=== PATIENT | female | born 1990 | race African-American/Black ===

== ENCOUNTER 2018-08-05 21:25 | Emergency (ER) | payer OTHER ==
[~2018-08-05] VITALS: Ht 167.6 cm; Wt 95.3 kg
[2018-08-05 22:32] LABS: URINE BLOOD NEGATIVE (Negative); URINE CLARITY CLEAR; URINE COLOR YELLOW; URINE GLUCOSE-RANDOM NEGATIVE (Negative); URINE LEUKOCYTES-REFLEX NEGATIVE (Negative); URINE NITRITE-REFLEX NEGATIVE (Negative); URINE PROTEIN 1+ (Negative); URINE SPECIFIC GRAVITY >= 1.030 (1.005-1.030)
[2018-08-05 22:34] LABS: ICTOTEST (BILI CONFIRMATORY) Negative (Negative); URINE BILIRUBIN 1+ (Negative); URINE KETONES 3+ (Negative)
[2018-08-05 22:43] LABS: ABSOLUTE LYMPHOCYTES 0.8 thou/uL (0.8-5.3); ABSOLUTE MONOCYTES 0.5 thou/uL (0.0-1.2); ABSOLUTE NEUTROPHILS 3.2 thou/uL (1.6-8.1); BASOPHILS 1.1 %; EOSINOPHILS 0.6 %; HEMATOCRIT 35.4 % (37.0-47.0); LYMPHOCYTES 17.2 %; MCH 21.4 pg (26.0-34.0); MCHC 31.2 g/dL (28.0-37.0); MCV 68.5 fL (80.0-100.0); MONOCYTES 10.2 %; MPV 9.2 fl. (7.2-11.1); NUCLEATED RBCS 0 /100WBC; PLATELET COUNT* 255 thou/uL (150-400); POLYS 70.9 %; RBC 5.16 mil/uL (4.20-5.00); RDW-CV 19.8 % (10.5-14.5); WBC 4.5 thou/uL (4.0-11.0)
[2018-08-05 22:50] LABS: CALCIUM 9.4 mg/dL (8.5-10.1); CREATININE 0.9 mg/dL (0.6-1.3); POTASSIUM 3.5 mmol/L (3.5-5.1)
[2018-08-05 22:53] LABS: APTT 29.7 Seconds (25.0-31.3); INR 1.1; PROTIME 11.2 Seconds (9.20-11.50)
[2018-08-05 22:54] LABS: ALBUMIN 4.1 g/dL (3.4-5.0); TOTAL BILIRUBIN 0.5 mg/dL (<0.1-1.0); TOTAL PROTEIN 8.2 g/dL (6.4-8.2); URIC ACID* 4.4 mg/dL (2.6-7.2)
[2018-08-05 23:03] LABS: ANISOCYTOSIS 1+; HYPOCHROMASIA 1+; MICROCYTES 2+; OVALOCYTES 1+; PLATELET ESTIMATE ADEQUATE
[2018-08-06] MEDS ORDERED: ONDANSETRON HCL4 M2 PO (01:19)
[2018-08-06] MEDS ORDERED: TRINATE TABLET1 EACH PO (01:19)
[2018-08-06 02:02] VITALS: BP 135/69
== END 2018-08-06 02:04 | disposition home or self-care (01) ==
LOC: M.ERS 21:25
PROVIDERS: Nurse Practitioner Family
DX: O21.0 Mild hyperemesis gravidarum (principal); O00.01 Abdominal pregnancy with intrauterine pregnancy; O26.891 Other specified pregnancy related conditions, first trimester; R03.0 Elevated blood-pressure reading, without diagnosis of hypertension; Z3A.08 8 weeks gestation of pregnancy

== ENCOUNTER → 2020-05-17 | Outpatient (CLI) | payer OTHER ==
[~2020-05-17] MED LIST: ONDANSETRON HCL4 M2 PO; TRINATE TABLET1 EACH PO
== END ==
LOC: M.ULTRA 07:57
PROVIDERS: ATTEND Family Medicine
DX: K76.0 Fatty (change of) liver, not elsewhere classified (principal); R16.0 Hepatomegaly, not elsewhere classified; R19.05 Periumbilic swelling, mass or lump